=== PATIENT | female | born 1970 | race African-American/Black ===

== ENCOUNTER 2016-11-14 19:26 | Emergency (ER) | payer MEDICAID ==
[~2016-11-14] VITALS: Ht 162.6 cm; Wt 94.3 kg
[2016-11-14 19:59] VITALS: BP 130/78
== END 2016-11-15 05:16 | disposition left against medical advice (07) ==
LOC: ER 19:35
DX: R51 Headache (principal); M54.2 Cervicalgia; M79.632 Pain in left forearm; Z53.21 Procedure and treatment not carried out due to patient leaving prior to being seen by health care provider; V49.49XA Driver injured in collision with other motor vehicles in traffic accident, initial encounter; Y93.89 Activity, other specified; Y99.8 Other external cause status; Y92.410 Unspecified street and highway as the place of occurrence of the external cause
CPT/HCPCS: 70450; 72125

== ENCOUNTER 2016-11-15 08:02 | Emergency (ER) | payer MEDICAID ==
[~2016-11-15] VITALS: Ht 162.6 cm; Wt 93.4 kg
[2016-11-15 08:14] VITALS: BP 106/67
== END 2016-11-15 09:29 | disposition home or self-care (01) ==
LOC: ER 08:02
DX: S16.1XXA Strain of muscle, fascia and tendon at neck level, initial encounter (principal); R51 Headache; V49.9XXA Car occupant (driver) (passenger) injured in unspecified traffic accident, initial encounter; Y93.89 Activity, other specified; Y99.8 Other external cause status; Y92.89 Other specified places as the place of occurrence of the external cause